=== PATIENT | female | born 1990 | race Caucasian/White ===

== ENCOUNTER 2018-04-03 15:11 | Observation (INO) | payer OTHER ==
[~2018-04-03] VITALS: Ht 152.4 cm; Wt 63.8 kg
[~2018-04-03 15:11] MED LIST: CONCERTA18 MG PO; NEXIUM20 MG PO; PHENERGAN25 MG PO; ZANTAC150 MG PO
[2018-04-03 15:56] LABS: HEMATOCRIT 31.2 % (36.0-46.0); HEMOGLOBIN 10.6 G/DL (11.9-15.5); MCH 29.1 PG (29.0-34.0); MCV 85.7 FL (83-99); PLATELET COUNT 191 K/uL (156-360); RBC DIS.WIDTH-CV 14.2 % (11.8-14.6); RBC DIS.WIDTH-SD 43.8 % (39-53); RED BLOOD COUNT 3.64 M/uL (3.80-5.20); WHITE BLOOD COUNT 10.5 K/uL (4.1-10.2)
[2018-04-03 16:06] LABS: APPEARANCE SL.HAZY ((CLEAR)); BILIRUBIN NEGATIVE; BLOOD NEGATIVE; COLOR YELLOW ((YELLOW)); GLUCOSE (STRIP) NEGATIVE; KETONES NEGATIVE; LEUKOCYTES TRACE; NITRITE NEGATIVE; PROTEIN (STRIP) NEGATIVE; SPECIFIC GRAVITY 1.008 (1.000-1.030); UROBILINOGEN 0.2 MG/DL (0.2-1.0)
[2018-04-03 16:07] LABS: ALBUMIN 3.3 g/dL (3.2-4.8); CHLORIDE 110 mEq/L (99-109); POTASSIUM 3.6 mEq/L (3.7-5.4); SODIUM 138 mEq/L (136-147)
[2018-04-03 16:09] LABS: GLUCOSE 102 mg/dL (70-99); TOTAL PROTEIN 6.2 g/dL (6.4-8.3)
[2018-04-03 16:11] LABS: TOTAL BILIRUBIN 0.5 mg/dL (0.0-1.0)
[2018-04-03 16:13] LABS: ALKALINE PHOSPHATASE 43 IU/L (3-129); CREATININE 0.7 mg/dL (0.6-1.3); GFR ESTIMATE (CALCULATED) > 59 mL/min/
[2018-04-03 16:14] LABS: BACTERIA RARE /HPF; CALCIUM OXALATE CRYSTALS 2+ /HPF; EPITHELIAL CELLS RARE /HPF; MUCUS NONE SEEN /LPF; RED BLOOD CELLS 0-5 /HPF (0-5); UCUL ADDED? NO; WHITE BLOOD CELLS 0-5 /HPF (0-5)
[2018-04-03 16:14] LABS: UREA NITROGEN (BUN) 8 mg/dL (9-23)
[2018-04-03 16:15] LABS: AST (GOT) 23 IU/L (2-34)
[2018-04-03 16:16] LABS: ALT (GPT) 22 IU/L (3-49)
[2018-04-03 16:19] LABS: TROP-I INTERPRETATION NEGATIVE; TROPONIN-I < 0.01 ng/mL (0.0-0.30)
[2018-04-03 16:41] LABS: AMPHETAMINE NEGATIVE (500 ng/mL); BARBITURATES NEGATIVE (200 ng/mL); BENZODIAZEPINES NEGATIVE (150 ng/mL); BUPRENORPHINE NEGATIVE (10 ng/mL); COCAINE NEGATIVE (150 ng/mL); METHADONE NEGATIVE (200 ng/mL); METHAMPHETAMINE NEGATIVE (500 ng/mL); OPIATES (MORPHINE) NEGATIVE (100 ng/mL); OXYCODONE NEGATIVE (100 ng/mL); PHENCYCLIDINE NEGATIVE (25 ng/mL); PROPOXYPHENE NEGATIVE (300 ng/mL); THC CANNABINOIDS NEGATIVE (50 ng/mL); TRICYCLIC ANTIDEPRESSANTS NEGATIVE (300 ng/mL)
[2018-04-03] MEDS ORDERED: PRENATAL TABLE1 EACH PO (18:01)
[2018-04-03 21:08] VITALS: BP 108/59
[2018-04-03] MEDS ORDERED: MONISTAT 745 GM VG (22:26)
[2018-04-04 00:18] VITALS: BP 111/60
[2018-04-04 03:59] VITALS: BP 100/52
[2018-04-04 08:59] VITALS: BP 88/53
[2018-04-04 11:23] VITALS: BP 106/53
== END 2018-04-04 18:37 | disposition home or self-care (01) ==
LOC: EME 15:11 → EDOF 19:29 → 4SOUTH 19:29 → EDOF 19:29 → ENRESERV 19:31 → 4SOUTH 20:49
PROVIDERS: Nurse Practitioner Family
PROC: B246ZZZ Ultrasonography of Right and Left Heart (ICD-10-PCS; principal; 2018-04-04)
DX: O26.892 Other specified pregnancy related conditions, second trimester (principal); I95.1 Orthostatic hypotension; O99.412 Diseases of the circulatory system complicating pregnancy, second trimester; I34.0 Nonrheumatic mitral (valve) insufficiency; R00.1 Bradycardia, unspecified; O99.342 Other mental disorders complicating pregnancy, second trimester; F41.9 Anxiety disorder, unspecified; O99.012 Anemia complicating pregnancy, second trimester; D64.9 Anemia, unspecified; Z3A.26 26 weeks gestation of pregnancy; Z91.018 Allergy to other foods
CPT/HCPCS: 80053; 81003; 82948; 84484; 85027; 93005; 93306; 99281; 99285; G0378; J7030; J7120